=== PATIENT | male | born 1965 | race Caucasian/White ===

== ENCOUNTER 2018-11-07 07:25 | Emergency (ER) | payer OTHER ==
[~2018-11-07] VITALS: Ht 175.3 cm; Wt 117.9 kg
[~2018-11-07 07:25] MED LIST: AMBIEN 10 MG TA10 MG; ATENOLOL; AUGMENTIN 500-1 EACH PO; AUGMENTIN 875-1 EACH PO; BENZTROPINE; CLONAZEPAM 1 MG1 M1; DESYREL PO; DOXYCYCLINE 10100 MG PO; HYDROCODONE-AP1 EAC6 PO; IBUPROFEN 800800 M1 PO; LIPITOR10 MG; LISINOPRIL; NORCO 5-325 TA1 EACH PO; NORVASC5 MG PO; PENICILLIN VK250 MG PO; PERCOCET 5-3251 EACH PO; RESTORIL30 MG; RISPERDAL PO; ROBAXIN 750 MG750 MG PO; VENTOLIN HFA 1818 GM INH; XANAX1 MG; [UNRECOGNIZED DRUG - OTHER]
[2018-11-07] MEDS ORDERED: ULTRAM 50MG TAB50 MG PO (07:40)
[2018-11-07] MEDS ORDERED: AMOXICILLIN 50500 MG PO (07:40)
[2018-11-07 07:47] VITALS: BP 152/98
== END 2018-11-07 07:47 | disposition home or self-care (01) ==
LOC: M.ERS 07:25
DX: K02.9 Dental caries, unspecified (principal); I10 Essential (primary) hypertension; F32.9 Major depressive disorder, single episode, unspecified; F20.9 Schizophrenia, unspecified; F17.210 Nicotine dependence, cigarettes, uncomplicated; Z98.890 Other specified postprocedural states; Z85.828 Personal history of other malignant neoplasm of skin

== ENCOUNTER 2019-01-18 03:46 | Emergency (ER) | payer OTHER ==
[~2019-01-18] VITALS: Ht 182.9 cm; Wt 108.9 kg
[~2019-01-18 03:46] MED LIST changes: +AMOXICILLIN 50500 MG PO; +ULTRAM 50MG TAB50 MG PO
[2019-01-18] MEDS ORDERED: AMOXICILLIN875 MG PO (04:13)
[2019-01-18] MEDS ORDERED: NORCO 7.5-3251 EACH PO (04:13)
[2019-01-18 04:22] VITALS: BP 150/75
== END 2019-01-18 04:22 | disposition home or self-care (01) ==
LOC: M.ERS 03:46
DX: K08.89 Other specified disorders of teeth and supporting structures (principal); F17.210 Nicotine dependence, cigarettes, uncomplicated; I10 Essential (primary) hypertension; F32.9 Major depressive disorder, single episode, unspecified; F20.9 Schizophrenia, unspecified; Z90.89 Acquired absence of other organs; Z85.828 Personal history of other malignant neoplasm of skin

== ENCOUNTER 2019-02-15 13:10 | Emergency (ER) | payer OTHER | END 2019-02-15 16:40 | disposition home or self-care (01) | LOC: M.ERS 13:10 | DX: M48.061 Spinal stenosis, lumbar region without neurogenic claudication (principal); G89.29 Other chronic pain; F17.210 Nicotine dependence, cigarettes, uncomplicated; I10 Essential (primary) hypertension; F32.9 Major depressive disorder, single episode, unspecified; F20.9 Schizophrenia, unspecified ==

== ENCOUNTER 2019-03-09 11:38 | Emergency (ER) | payer OTHER ==
[~2019-03-09] VITALS: Ht 175.3 cm; Wt 119.8 kg
[~2019-03-09 11:38] MED LIST changes: +AMOXICILLIN875 MG PO; +CELEXA20 MG PO; +FENOFIBRATE160 MG PO; +LUNESTA3 MG PO; +MEDROLDOSEPACK PO; +NABUMETONE 750750 M1 PO; +NORCO 5-325 TA1 EAC1 PO; +NORCO 7.5-3251 EACH PO; +RISPERDAL4 M1 PO
[2019-03-09 12:01] LABS: URINE BILIRUBIN NEGATIVE (Negative); URINE BLOOD NEGATIVE (Negative); URINE CLARITY CLEAR; URINE COLOR YELLOW; URINE GLUCOSE-RANDOM NEGATIVE (Negative); URINE KETONES TRACE (Negative); URINE LEUKOCYTES-REFLEX NEGATIVE (Negative); URINE NITRITE-REFLEX NEGATIVE (Negative); URINE PROTEIN NEGATIVE (Negative); URINE SPECIFIC GRAVITY 1.025 (1.005-1.030); URINE UROBILINOGEN 0.2 E.U./dl (0.2-1.0)
[2019-03-09] MEDS ORDERED: ZANAFLEX4 MG PO (12:06)
[2019-03-09] MEDS ORDERED: NORCO 5-325 TA1 EAC1 PO (13:36)
[2019-03-09 13:37] VITALS: BP 158/74
== END 2019-03-09 13:38 | disposition home or self-care (01) ==
LOC: M.ERS 11:38
PROVIDERS: Nurse Practitioner Family
DX: S39.012A Strain of muscle, fascia and tendon of lower back, initial encounter (principal); S80.02XA Contusion of left knee, initial encounter; S60.212A Contusion of left wrist, initial encounter; M48.061 Spinal stenosis, lumbar region without neurogenic claudication; M51.26 Other intervertebral disc displacement, lumbar region; I10 Essential (primary) hypertension; J44.9 Chronic obstructive pulmonary disease, unspecified; F32.9 Major depressive disorder, single episode, unspecified; F20.9 Schizophrenia, unspecified; F17.210 Nicotine dependence, cigarettes, uncomplicated; Z90.89 Acquired absence of other organs; Z85.828 Personal history of other malignant neoplasm of skin; W01.0XXA Fall on same level from slipping, tripping and stumbling without subsequent striking against object, initial encounter; Y92.89 Other specified places as the place of occurrence of the external cause; Y93.89 Activity, other specified; Y99.8 Other external cause status

== ENCOUNTER 2019-03-21 19:00 | Emergency (ER) | payer OTHER ==
[~2019-03-21] VITALS: Ht 175.3 cm; Wt 119.8 kg
[~2019-03-21 19:00] MED LIST changes: +ZANAFLEX4 MG PO
[2019-03-21 19:07] VITALS: BP 151/83
[2019-03-21] MEDS ORDERED: NORCO 7.5-3251 EACH PO (19:27)
[2019-03-21] MEDS ORDERED: PENICILLIN VK250 MG PO (19:27)
== END 2019-03-21 19:30 | disposition home or self-care (01) ==
LOC: M.ERS 19:00
DX: K02.9 Dental caries, unspecified (principal); I10 Essential (primary) hypertension; F32.9 Major depressive disorder, single episode, unspecified; F20.9 Schizophrenia, unspecified; J44.9 Chronic obstructive pulmonary disease, unspecified; F17.210 Nicotine dependence, cigarettes, uncomplicated; Z90.89 Acquired absence of other organs; Z85.828 Personal history of other malignant neoplasm of skin

== ENCOUNTER 2019-07-26 15:48 | Emergency (ER) | payer OTHER ==
[~2019-07-26] VITALS: Ht 175.3 cm; Wt 120.2 kg
[2019-07-26] MEDS ORDERED: OXYCONTIN20 M1 PO (16:02)
[2019-07-26] MEDS ORDERED: AMBIEN 10 MG TA10 MG PO (16:02)
[2019-07-26 16:28] LABS: INFLUENZA A ANTIGEN Negative (Negative); INFLUENZA B ANTIGEN Negative (Negative)
[2019-07-26 18:36] LABS: ABSOLUTE BASOPHILS 0.2 thou/uL (0.0-0.2); ABSOLUTE EOSINOPHILS 0.2 thou/uL (0.0-0.7); ABSOLUTE LYMPHOCYTES 2.9 thou/uL (0.8-5.3); ABSOLUTE NEUTROPHILS 6.5 thou/uL (1.6-8.1); BASOPHILS 1.4 %; EOSINOPHILS 1.9 %; HEMATOCRIT 43.1 % (42.0-52.0); HEMOGLOBIN 14.8 gm/dL (14.0-18.0); LYMPHOCYTES 27.2 %; MCH 28.3 pg (26.0-34.0); MCHC 34.3 g/dL (28.0-37.0); MCV 82.3 fL (80.0-100.0); MONOCYTES 9.5 %; MPV 6.9 fl. (7.2-11.1); NUCLEATED RBCS 0 /100WBC; PLATELET COUNT* 308 thou/uL (150-400); RBC 5.23 mil/uL (4.50-6.00); RDW-CV 13.3 % (10.5-14.5); WBC 10.8 thou/uL (4.0-11.0)
[2019-07-26 18:51] LABS: CREATININE 0.8 mg/dL (0.6-1.3); POTASSIUM 3.5 mmol/L (3.5-5.1)
[2019-07-26 18:52] LABS: ALBUMIN 3.8 g/dL (3.4-5.0); TOTAL BILIRUBIN 0.4 mg/dL (<0.1-1.0); TOTAL PROTEIN 7.7 g/dL (6.4-8.2)
[2019-07-26] MEDS ORDERED: PROAIR HFA8.5 GM INH (19:53)
[2019-07-26] MEDS ORDERED: MEDROLDOSEPACK PO (19:53)
[2019-07-26] MEDS ORDERED: DOXYCYCLINE 10100 MG PO (19:53)
[2019-07-26] MEDS ORDERED: NORCO 5-325 TA1 EAC1 PO (20:49)
[2019-07-26 20:55] VITALS: BP 146/90
--- NOTE | 2019-07-27 14:15 | EKG ---
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[place] : 1965 Requested By: Yi Webb Order Number: [id number] MD: Wilian Young Measurements Intervals [place] Rate: 69 P: -22 [place]: 173 QRS: 11 QRSD: 92 T: 30 QT: 426 QTc: 457 Interpretive Statements Sinus rhythm Compared to ECG 05/24/2010 14:27:49 Sinus bradycardia no longer present T-wave abnormality no longer present Electronically Signed On 07-27-2019 14:15:04 [employer] by Wilian Young [email or web address] <ELECTRONICALLY SIGNED> By: Wilian Young MD, [facility] 07/27/19 1415 57 57 Wilian Young MD, FAC /EPI
== END 2019-07-26 21:02 | disposition home or self-care (01) ==
LOC: M.ERS 15:48
PROVIDERS: Nurse Practitioner Family; Physician Assistant
DX: J20.9 Acute bronchitis, unspecified (principal); I10 Essential (primary) hypertension; F32.9 Major depressive disorder, single episode, unspecified; J44.9 Chronic obstructive pulmonary disease, unspecified; F17.210 Nicotine dependence, cigarettes, uncomplicated; Z85.828 Personal history of other malignant neoplasm of skin; Z90.89 Acquired absence of other organs

== ENCOUNTER 2019-11-28 02:32 | Emergency (ER) | payer OTHER ==
[~2019-11-28] VITALS: Ht 175.3 cm; Wt 120.2 kg
[~2019-11-28 02:32] MED LIST changes: +AMBIEN 10 MG TA10 MG PO; +OXYCONTIN20 M1 PO; +PROAIR HFA8.5 GM INH
[2019-11-28 03:07] LABS: PCO2 33.3 mmHg (35.0-45.0); PO2 68.4 mmHg (75.0-100.0); pH 7.413 (7.340-7.450)
[2019-11-28 03:17] LABS: ABSOLUTE BASOPHILS 0.1 thou/uL (0.0-0.2); ABSOLUTE EOSINOPHILS 0.2 thou/uL (0.0-0.7); ABSOLUTE LYMPHOCYTES 2.2 thou/uL (0.8-5.3); ABSOLUTE MONOCYTES 0.8 thou/uL (0.0-1.2); ABSOLUTE NEUTROPHILS 4.8 thou/uL (1.6-8.1); BASOPHILS 0.8 %; EOSINOPHILS 2.9 %; HEMATOCRIT 39.7 % (42.0-52.0); HEMOGLOBIN 13.2 gm/dL (14.0-18.0); MCH 27.9 pg (26.0-34.0); MCHC 33.3 g/dL (28.0-37.0); MCV 83.6 fL (80.0-100.0); MONOCYTES 10.1 %; MPV 7.1 fl. (7.2-11.1); NUCLEATED RBCS 0 /100WBC; PLATELET COUNT* 258 thou/uL (150-400); POLYS 59.2 %; RBC 4.75 mil/uL (4.50-6.00); RDW-CV 13.5 % (10.5-14.5); WBC 8.1 thou/uL (4.0-11.0)
[2019-11-28 03:21] LABS: CALCIUM 8.2 mg/dL (8.5-10.1); CREATININE 1.1 mg/dL (0.6-1.3); POTASSIUM 3.5 mmol/L (3.5-5.1)
[2019-11-28 03:32] LABS: ALBUMIN 3.6 g/dL (3.4-5.0); TOTAL BILIRUBIN 0.4 mg/dL (<0.1-1.0); TOTAL PROTEIN 7.2 g/dL (6.4-8.2)
[2019-11-28] MEDS ORDERED: TORADOL 10 MG T10 MG PO (03:46)
[2019-11-28 03:52] LABS: URINE BILIRUBIN NEGATIVE (Negative); URINE BLOOD NEGATIVE (Negative); URINE CLARITY CLEAR; URINE COLOR YELLOW; URINE GLUCOSE-RANDOM NEGATIVE (Negative); URINE KETONES NEGATIVE (Negative); URINE LEUKOCYTES-REFLEX NEGATIVE (Negative); URINE NITRITE-REFLEX NEGATIVE (Negative); URINE PROTEIN NEGATIVE (Negative); URINE SPECIFIC GRAVITY 1.025 (1.005-1.030)
[2019-11-28 04:00] LABS: AMP/METHAMP POSITIVE (Negative); BARBITURATES Negative (Negative); BENZODIAZEPINES POSITIVE (Negative); COCAINE Negative (Negative); METHADONE Negative (Negative); OPIATES POSITIVE (Negative); PCP Negative (Negative); THC Negative (Negative)
[2019-11-28 04:03] VITALS: BP 120/64
--- NOTE | 2019-11-28 14:46 | EKG ---
[place] [address] ELECTROCARDIOGRAM REPORT Name: JAZZ SCRUGGS Room: [facility]#: [id number] Admission: 11/28/19 Attend Phys: Discharge: 11/28/19 Date of : 63 Date of Service: 11/28/19 0249 Report #: [id number] THIS REPORT FOR: //name// 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
== END 2019-11-28 04:03 | disposition home or self-care (01) ==
LOC: M.ERS 02:32
PROVIDERS: Personal Emergency Response Attendant
DX: S20.211A Contusion of right front wall of thorax, initial encounter (principal); S50.01XA Contusion of right elbow, initial encounter; R23.4 Changes in skin texture; I10 Essential (primary) hypertension; J44.9 Chronic obstructive pulmonary disease, unspecified; F17.210 Nicotine dependence, cigarettes, uncomplicated; Z85.118 Personal history of other malignant neoplasm of bronchus and lung; Z90.89 Acquired absence of other organs; Z85.828 Personal history of other malignant neoplasm of skin; Z79.899 Other long term (current) drug therapy; W01.0XXA Fall on same level from slipping, tripping and stumbling without subsequent striking against object, initial encounter; Y93.89 Activity, other specified; Y92.89 Other specified places as the place of occurrence of the external cause; Y99.8 Other external cause status

== ENCOUNTER 2020-01-12 19:56 | Emergency (ER) | payer OTHER ==
[~2020-01-12] VITALS: Ht 175.3 cm; Wt 117.9 kg
[~2020-01-12 19:56] MED LIST changes: +TORADOL 10 MG T10 MG PO
[2020-01-12 20:37] LABS: ABSOLUTE BASOPHILS 0.2 thou/uL (0.0-0.2); ABSOLUTE EOSINOPHILS 0.4 thou/uL (0.0-0.7); ABSOLUTE LYMPHOCYTES 3.5 thou/uL (0.8-5.3); ABSOLUTE MONOCYTES 0.9 thou/uL (0.0-1.2); ABSOLUTE NEUTROPHILS 6.4 thou/uL (1.6-8.1); BASOPHILS 1.4 %; EOSINOPHILS 3.3 %; HEMOGLOBIN 14.6 gm/dL (14.0-18.0); LYMPHOCYTES 31.1 %; MCH 27.9 pg (26.0-34.0); MCHC 33.9 g/dL (28.0-37.0); MCV 82.3 fL (80.0-100.0); MONOCYTES 7.9 %; NUCLEATED RBCS 0 /100WBC; PLATELET COUNT* 309 thou/uL (150-400); POLYS 56.3 %; RBC 5.23 mil/uL (4.50-6.00); RDW-CV 13.3 % (10.5-14.5); WBC 11.3 thou/uL (4.0-11.0)
[2020-01-12 20:50] LABS: CALCIUM 8.7 mg/dL (8.5-10.1); POTASSIUM 3.7 mmol/L (3.5-5.1)
[2020-01-12 20:56] LABS: ALBUMIN 3.4 g/dL (3.4-5.0); TOTAL BILIRUBIN 0.2 mg/dL (<0.1-1.0)
[2020-01-12 20:58] LABS: URINE BILIRUBIN NEGATIVE (Negative); URINE BLOOD NEGATIVE (Negative); URINE CLARITY CLEAR; URINE COLOR YELLOW; URINE GLUCOSE-RANDOM NEGATIVE (Negative); URINE KETONES NEGATIVE (Negative); URINE LEUKOCYTES-REFLEX NEGATIVE (Negative); URINE NITRITE-REFLEX NEGATIVE (Negative); URINE PROTEIN NEGATIVE (Negative); URINE SPECIFIC GRAVITY >= 1.030 (1.005-1.030); URINE UROBILINOGEN 0.2 E.U./dl (0.2-1.0)
[2020-01-12 21:05] LABS: AMP/METHAMP Negative (Negative); BARBITURATES Negative (Negative); BENZODIAZEPINES POSITIVE (Negative); COCAINE Negative (Negative); METHADONE Negative (Negative); OPIATES Negative (Negative); PCP Negative (Negative); THC Negative (Negative)
[2020-01-12 21:54] VITALS: BP 127/74
--- NOTE | 2020-01-13 10:18 | EKG ---
[place] [address] ELECTROCARDIOGRAM REPORT Name: JAZZ SCRUGGS Room: [facility]#: [id number] Admission: 01/12/20 Attend Phys: Discharge: 01/12/20 Date of : 63 Date of Service: 01/12/20 [facility] Report #: [id number] THIS REPORT FOR: //name// [facility] ED Test Date: 2020-01-12 Test Time: 20:01:12 Pat Name: JAZZ SCRUGGS Department: Room: Gender: Distribution Sales Representative: : 1965 Requested By: Stacy Beckman Order Number: [id number] MD: Wilian Young Measurements Intervals [place] Rate: 77 P: 0 [place]: 177 QRS: 28 QRSD: 95 T: 46 QT: 405 QTc: 459 Interpretive Statements Sinus rhythm Baseline wander in lead(s) II,III,aVF Compared to ECG 11/28/2019 02:49:35 No significant changes Electronically Signed On 01-13-2020 10:17:24 CDT by Wilian Young [email or web address] <ELECTRONICALLY SIGNED> By: Wilian Young MD, FACC 01/13/20 1017 00 00 Wilian Young MD, [facility] /EPI
== END 2020-01-12 21:55 | disposition home or self-care (01) ==
LOC: M.ERS 19:56
PROVIDERS: Emergency Medicine
DX: R20.2 Paresthesia of skin (principal); K08.89 Other specified disorders of teeth and supporting structures; M54.9 Dorsalgia, unspecified; F17.210 Nicotine dependence, cigarettes, uncomplicated; I10 Essential (primary) hypertension; F32.9 Major depressive disorder, single episode, unspecified; F20.9 Schizophrenia, unspecified; J44.9 Chronic obstructive pulmonary disease, unspecified; R06.02 Shortness of breath; R07.89 Other chest pain; Z79.899 Other long term (current) drug therapy

== ENCOUNTER 2021-04-30 07:29 | Emergency (ER) | payer OTHER ==
[~2021-04-30] VITALS: Ht 175.3 cm; Wt 125.7 kg
[2021-04-30] MEDS ORDERED: ATENOLOL 25 MG25 M1 PO (07:51)
[2021-04-30] MEDS ORDERED: NORVASC10 MG PO (07:51)
[2021-04-30] MEDS ORDERED: WELLBUTRIN 100100 MG PO (07:51)
[2021-04-30 08:21] LABS: ABSOLUTE BASOPHILS 0.1 thou/uL (0.0-0.2); ABSOLUTE EOSINOPHILS 0.3 thou/uL (0.0-0.7); ABSOLUTE LYMPHOCYTES 2.1 thou/uL (0.8-5.3); ABSOLUTE MONOCYTES 0.8 thou/uL (0.0-1.2); ABSOLUTE NEUTROPHILS 5.3 thou/uL (1.6-8.1); BASOPHILS 0.7 %; EOSINOPHILS 3.1 %; HEMATOCRIT 38.1 % (42.0-52.0); HEMOGLOBIN 12.9 gm/dL (14.0-18.0); LYMPHOCYTES 24.9 %; MCH 27.7 pg (26.0-34.0); MCHC 33.7 g/dL (28.0-37.0); MCV 81.9 fL (80.0-100.0); MONOCYTES 8.9 %; MPV 6.9 fl. (7.2-11.1); NUCLEATED RBCS 0 /100WBC; PLATELET COUNT* 286 thou/uL (150-400); POLYS 62.4 %; RBC 4.65 mil/uL (4.50-6.00); RDW-CV 13.9 % (10.5-14.5); WBC 8.5 thou/uL (4.0-11.0)
[2021-04-30 08:34] LABS: CALCIUM 8.6 mg/dL (8.5-10.1); CREATININE 0.8 mg/dL (0.6-1.3); POTASSIUM 4.2 mmol/L (3.5-5.1)
[2021-04-30 08:38] LABS: ALBUMIN 3.7 g/dL (3.4-5.0); MAGNESIUM 2.1 mg/dL (1.8-2.4); TOTAL BILIRUBIN 0.2 mg/dL (<0.1-1.0)
--- NOTE | 2021-04-30 10:38 | EKG ---
[place] [address] ELECTROCARDIOGRAM REPORT Name: JAZZ SCRUGGS [facility] [id number] Admission: 04/30/21 Attend Phys: Discharge: Date of : 63 Date of Service: 04/30/21 0743 Report #: [id number] THIS REPORT FOR: //name// [facility] ED Test Date: 2021-04-30 Test Time: 07:43:08 Pat Name: JAZZ SCURGGS Department: Room: Gender: Perinatal Nurse: [facility] : 1965 Requested By: Jacob Castrejon Order Number: [id number] MD: Stan Mcak Measurements Intervals [place] Rate: 55 P: -20 [place]: 192 QRS: 12 QRSD: 91 T: 36 QT: 462 QTc: 442 Interpretive Statements Sinus rhythm Compared to ECG 01/12/2020 20:01:12 No significant changes Electronically Signed On 04-30-2021 10:37:52 CDT by Stan Mcak [email or web address] <ELECTRONICALLY SIGNED> By: Stan Mack MD, [facility] 04/30/21 1037 0743 0743 Stan Mack MD, FAC /EPI
[2021-04-30] MEDS ORDERED: AUGMENTIN 875-1 EACH PO (10:58)
[2021-04-30 11:25] VITALS: BP 122/64
== END 2021-04-30 11:27 | disposition home or self-care (01) ==
LOC: M.ERS 07:29
PROVIDERS: Emergency Medicine Emergency Medical Services
DX: R07.89 Other chest pain (principal); R06.02 Shortness of breath; R53.83 Other fatigue; R05.9 Cough, unspecified; J02.9 Acute pharyngitis, unspecified; R10.84 Generalized abdominal pain; R63.1 Polydipsia; E11.9 Type 2 diabetes mellitus without complications; I10 Essential (primary) hypertension; F32.9 Major depressive disorder, single episode, unspecified; J44.9 Chronic obstructive pulmonary disease, unspecified; F20.9 Schizophrenia, unspecified; F17.210 Nicotine dependence, cigarettes, uncomplicated; Z90.89 Acquired absence of other organs; Z85.828 Personal history of other malignant neoplasm of skin; Z85.118 Personal history of other malignant neoplasm of bronchus and lung; Z79.899 Other long term (current) drug therapy; Z88.8 Allergy status to other drugs, medicaments and biological substances